=== PATIENT | male | born 1970 | race Hispanic/Latino ===

== ENCOUNTER 2019-05-30 23:33 | Observation (INO) | payer SELFPAY ==
[2019-05-31] MEDS ORDERED: Senokot S 8.6-50 MG TAB PO PRN (02:17)
[2019-05-31] MEDS ORDERED: Acetaminophen 325 MG TAB PO PRN ×2 (02:17→02:19)
[2019-05-31] MEDS ORDERED: Ondansetron PF 4 MG/2 ML Vial IVP PRN (02:19)
[2019-05-31] MEDS ORDERED: Ketorolac Tromethamine 30 MG/ML VIAL IVP PRN ×2 (02:21→12:19)
[2019-05-31] MEDS ORDERED: Morphine 2 MG/ML SYRINGE SLOW IVP PRN (02:21)
[2019-05-31] MEDS ORDERED: Morphine 4 MG/ML VIAL SLOW IVP PRN ×2 (02:21→03:05)
[2019-05-31] MEDS ORDERED: Dextrose 5% in Water 1,000 ML IV PRN ×2 (02:22→02:23)
[2019-05-31] MEDS ORDERED: Dextrose 50% Abboject 50 ML SYRINGE SLOW IVP PRN (02:22)
[2019-05-31] MEDS ORDERED: Ondansetron ODT 8 MG TAB PO PRN (02:22)
[2019-05-31] MEDS ORDERED: Insulin Regular 300 UNITS/3 ML VIAL SC PRN (02:23)
[2019-05-31] MEDS ORDERED: Dextrose 50% Abboject 50 ML SYRINGE IVP PRN (02:23)
[2019-05-31] MEDS ORDERED: 1/2 NS w/KCL 20 mEq 1,000 ML IV SCH (02:30)
[2019-05-31] MEDS: Sodium Chloride 0.9% 1,000 ML IV SCH ×3 (03:25→20:20)
--- NOTE | 2019-05-31 03:41 | HP ---
CHIEF COMPLAINT: Abdominal pain, nausea and vomiting. HISTORY OF PRESENT ILLNESS: The patient is a 48-year-old male with a history of diabetes, who presented to the [facility] with complaints of abdominal pain, nausea and vomiting x1 day. The patient is English-speaking and states that yesterday, he started having lower abdominal pain, cramping and also started having some nausea and vomiting throughout about 4 times. He denies any fevers or chills. He denies any recent sick contacts or any travel. The patient does drink significantly. He told me that he drinks about 3 to 5 beers a day and also did some cocaine about 2 days ago. He states that he is compliant with his medications. Denies any diarrhea or any hematemesis or hematochezia. PAST MEDICAL HISTORY: He has a history of diabetes. PAST SURGICAL HISTORY: Denies. MEDICATIONS: 1. He is currently on lisinopril 2.5 mg daily. 2. He is also on 70/30 20 in the morning and 15 units at night. 3. Glipizide 5 mg a.c. 4. Metformin 1000 mg b.i.d. ALLERGIES: NO KNOWN DRUG ALLERGIES. FAMILY HISTORY: No history of heart disease or strokes. SOCIAL HISTORY: He continues to drink. Also uses drugs. Denies any smoking history. He is a full code. REVIEW OF SYSTEMS: All negative, except for the ones mentioned above in the HPI. PHYSICAL EXAMINATION: VITAL SIGNS: As of the following; temperature 98.9, pulse 84, respiratory rate 16, oxygen saturation 100% on room air and blood pressure 118/84. GENERAL: He is awake, alert, and oriented x3. Does not appear in distress. CARDIOVASCULAR: S1, S2 present. No murmurs, rubs, or gallops. ABDOMEN: Soft. Bowel sounds are present x2. Mild pain upon palpation to bilateral lower abdominal area. EXTREMITIES: No edema. Pedal pulses are present x2. NEUROVASCULAR: No focal deficits noted. MUSCULOSKELETAL: The patient does have pain to his bilateral lower back area. LABORATORY RESULTS: As of the following; WBCs of 9.5, hemoglobin of 14.6, hematocrit of 42.0, and platelets of 248. Chemistry; sodium of 135, potassium of 3.7, BUN of 9, creatinine of 0.83, sugar of 233. His lipase was 280. Troponin x1 was negative. His LFTs were completely normal. ASSESSMENT AND PLAN: The patient is a very pleasant 48-year-old male, who presents to the hospital with complaints of nausea, vomiting, and abdominal pain. 1. Nausea, vomiting, and abdominal pain, possibly gastritis versus possible pancreatitis versus gastroparesis. As the patient's lipase is mildly elevated, I will check a CRP. He currently feels much better with some IV hydration. I have asked him to refrain from alcohol use. We will start him on some Pepcid twice a day. We will also get an abdominal x-ray since he is having lower abdominal pain. No epigastric pain and also lower back pain. We will also get a urine to make sure he does not have a urinary tract infection; however, he denies any dysuria. The patient is a recently diagnosed diabetic and his states that he has been taking his insulin regularly. 2. Diabetes. Sugars are around 233 on admission. We will continue to monitor and put him on his home medication. We will advance his diet as tolerated. 3. Deep venous thrombosis prophylaxis. We will put the patient on SCDs and subcu Lovenox. Job ID: [id number]
[2019-05-31 03:47] LABS: #Eosinphils 0.5 thou/uL (0.0-0.7); #Lymphocytes 2.3 thou/uL (1.20-3.40); #Monocytes 0.6 thou/uL (0.11-0.59); #Neutrophils 5.5 thou/uL (1.40-6.50); %Basophils 0.4 % (0.0-1.0); %Eosinophils 5.1 % (0.0-10.0); %Lymphocytes 26.1 % (21.0-51.0); %Monocytes 7.1 % (0.0-10.0); %Neutrophils 61.3 % (42.0-75.0); Hemoglobin 13.4 g/dL (14.0-18.0); Mean Corpuscular HGB CONC 36.8 g/dL (32.0-36.0); Mean Corpuscular Hemoglobin 32.6 pg (27.0-31.0); Mean Corpuscular Volume 88.7 fL (78.0-98.0); Platelet Count 205 thou/uL (130-400); RBC Distribution Width 11.2 % (11.5-14.5); White Blood Cell (WBC) Count 8.9 thou/uL (4.8-10.8)
[2019-05-31 03:53] LABS: Anion Gap 13 mmol/L (10-20); BUN (Urea Nitrogen) 9 mg/dL (8.9-20.6); Calc. Creatinine Clearance 0 mL/min (70-130); Carbon Dioxide 23 mmol/L (22-29); Chloride 104 mmol/L (98-107); Estimated GFR-MDRD Greater than 90; Glucose 217 mg/dL (70-105); Potassium 3.7 mmol/L (3.5-5.1); Sodium 136 mmol/L (136-145)
[2019-05-31 03:56] VITALS: BMI 25.4
[2019-05-31] MEDS: HumaLOG 300 UNITS/3 ML VIAL SC PRN ×4 (06:12→20:26)
[2019-05-31 06:24] LABS: Bilirubin Negative (Negative); Blood, Urine Negative (Negative); Clarity Clear (Clear); Glucose, Urine (Dipstick) Greater than 1000 mg/dL (Negative); Leukocyte Negative Leu/uL (Negative); Nitrite Negative (Negative); Protein, Urine (Dipstick) Negative (Neg-Trace); RBC/HPF 0-3 HPF (0-3); Squamous Epithelial None Seen HPF (0-3); Urobilinogen Normal mg/dL (Less than 2); WBC/HPF 0-3 HPF (0-3)
[2019-05-31 06:26] LABS: Bacteria/HPF None Seen HPF (None Seen)
[2019-05-31 06:29] LABS: Urine Culture Reflex No No
[2019-05-31] MEDS: Enoxaparin Sodium 40 MG/0.4 ML SYRINGE SC SCH (07:48)
[2019-05-31] MEDS: Famotidine/PF 20 mg/2ml Vial SLOW IVP SCH ×2 (07:50→20:21)
--- NOTE | 2019-05-31 09:27 | RAD ---
1 VIEW ABDOMEN: Date; 05/31/2019 HISTORY: Lower abdominal pain. FINDINGS: Small amount of retained fecal material is seen throughout the colon. Bowel gas pattern is overall no nspecific. Phleboliths overlie the pelvis. There are calcifications overlying the midline upper abdom en, as well as the left upper quadrant. These calcifications could be in the region of the pancreas a nd related to pancreatic calcification, but these calcifications are difficult to definitely localize on this exam. Minimal degenerative change seen in the spine. IMPRESSION: 1. Calcifications overlying the upper abdomen which may be in the region of the pancreas and possibl y sequelae of prior pancreatitis. However, these calcifications are difficult to localize on this exa m and could potentially be related to ingested material within bowel. 2. Nonspecific bowel gas pattern. POS: KRC
--- NOTE | 2019-05-31 12:44 | PDOC.HOSPP ---
- Subjective Encounter Date: 05/31/19 Encounter Time: 09:00 Subjective: mild pain, tolerating diet now. no imaging done, lipase 127. - Objective Vital Signs & Weight: Vital Signs (12 hours) Temp Pulse Resp BP BP Pulse Ox 05/31/19 11:32 98.5 F 55 L 18 144/93 H 100 05/31/19 08:00 98.7 F 65 18 138/90 98 05/31/19 07:38 98.7 F 65 18 138/90 98 05/31/19 04:15 98.8 F 59 L 16 127/88 99 05/31/19 02:35 99 F 60 16 135/83 98 Weight Weight 171 lb 15.369 oz I&O: 05/30/19 05/31/19 06/01/19 06:59 06:59 06:59 Intake Total 350 Balance 350 Result Diagrams: 05/31/19 03:25 05/31/19 03:25 Additional Labs: Accuchecks 05/31/19 05/31/19 11:27 06:05 POC Glucose 233 H 214 H Hospitalist ROS - Medication Medications: Active Medications Generic Name Dose Route Start Last Admin Trade Name Freq PRN Reason Stop Dose Admin Enoxaparin Sodium 40 mg 05/31/19 09:00 05/31/19 07:48 Lovenox SC 40 mg 0900 SUE Administration Famotidine 20 mg 05/31/19 09:00 05/31/19 07:50 Pepcid SLOW IVP 20 mg BID SUE Administration Sodium Chloride 1,000 mls @ 125 mls/hr 05/31/19 02:30 05/31/19 11:55 Normal Saline 0.9% IV 1,000 mls .Q8H SUE Administration Insulin Human Lispro 0 units 05/31/19 02:22 05/31/19 11:28 Humalog SC 3 unit .MILD SLIDING SCALE PRN Administration Mild Correctional Scale - Exam General Appearance: NAD Eye: PERRL ENT: normocephalic atraumatic Neck: supple Heart: RRR Respiratory: CTAB Gastrointestinal: soft, normal bowel sounds Hosp A/P - Plan prob alcoholic pancreatitis causing N/v/abd pain -cw aggressive hydration of 2 more liters -can cw diet, if he tolerates - need LFT and CT for complete workup--no LFTs done. - r/p pseudocyst, GB induced pancreatitis as well. alcohol abuse - counselling when appropriate.
[2019-05-31 13:25] LABS: ALT (SGPT) 9 U/L (8-55); AST (SGOT) 9 U/L (5-34); Albumin 3.7 g/dL (3.5-5.0); Alkaline Phosphatase 87 U/L (40-110); Bilirubin, Direct 0.3 mg/dL (0.1-0.3); Bilirubin, Total 0.7 mg/dL (0.2-1.2)
[2019-05-31] MEDS ORDERED: Iopamidol 370 76% 100 ML VIAL ONE (13:44)
--- NOTE | 2019-05-31 15:43 | CT ---
CT ABDOMEN WITH ORAL AND IV CONTRAST: 05/31/19 HISTORY: Alcoholic pancreatitis. Concern for a pseudocyst. COMPARISON: None. FINDINGS: There are minimal dependent changes in the lung bases. The liver, spleen, adrenal glands, and kidneys are normal. No calcified gallstones are seen. Numerous calcifications are seen toward the pancreas. There are peripancreatic inflammatory changes. No free air, free fluid, or lymphadenopathy seen in th e abdomen. No abnormally loculated fluid collection is noted. No portal splenic thrombosis is seen. T he small bowel loops are not abnormally dilated. The bony structures are unremarkable. IMPRESSION: Acute on chronic pancreatitis. No evidence of pseudocyst or portal splenic thrombosis. POS: MZA
[2019-05-31] MEDS ORDERED: FLU VACC QS2019-20(6MOS UP)/PF 60 MCG/0.5 ML SYRINGE IM ONE (21:00)
[2019-06-01] MEDS: Sodium Chloride 0.9% 1,000 ML IV SCH ×2 (04:22→12:09)
[2019-06-01] MEDS: HumaLOG 300 UNITS/3 ML VIAL SC PRN ×2 (05:41→12:12)
[2019-06-01] MEDS ORDERED: Lisinopril 2.5 MG TAB PO SCH (09:00)
[2019-06-01] MEDS: Enoxaparin Sodium 40 MG/0.4 ML SYRINGE SC SCH (10:24)
[2019-06-01] MEDS: Famotidine/PF 20 mg/2ml Vial SLOW IVP SCH (10:25)
[2019-06-01 12:38] VITALS: BP 129/87; TEMP 98.7
--- NOTE | 2019-06-01 16:37 | DIS ---
DATE OF ADMISSION: 05/31/2019 DATE OF DISCHARGE: 06/01/2019 DISCHARGE DIAGNOSES: 1. Abdominal pain, nausea, vomiting, and mild pancreatitis. 2. Diabetes. 3. Alcohol abuse. HOSPITAL COURSE: The patient is a very pleasant 48-year-old male with a history of type 2 diabetes, who presents to the hospital with complaints of abdominal pain, nausea, and vomiting x1 day. At this time, he was given IV hydration, had mild elevated lipase. His abdominal pain had resolved. He was put on clear liquids and his diet was advanced. However, a CT was ordered that indicated the patient to have acute on chronic pancreatitis. No evidence of pseudocyst or portal splenic thrombosis was noted. There were initial LFTs ordered for this patient, which were negative and they continued to be negative. The patient was educated in Greenlandic to stay away from alcohol use. He stated that he understood this. His home medications will be continued. His home medications will be as of the following, glipizide 5 mg before meals, lisinopril 2.5 daily, insulin 15 units at night and 20 units in the morning, and Glucophage 1000 mg twice a day. PHYSICAL EXAMINATION: VITAL SIGNS: Temperature 98.7, pulse rate 69, respirations are 16, oxygen saturation 100% on room air, and blood pressure 129/87. GENERAL: He is awake, alert, and oriented x3. Does not appear in distress CV: S1 and S2 present. No murmurs, rubs, or gallops. ABDOMEN: Soft and nontender. Bowel sounds are present x2. Again, I have asked him to refrain from alcohol use given his pancreatitis. He understands that he will follow up with his primary. Job ID: [id number]
[2019-06-01] MEDS ORDERED: metFORMIN 500 MG TAB PO SCH (17:00)
== END 2019-06-01 12:55 | disposition home or self-care (01) ==
LOC: ONC 05-31 01:44
PROVIDERS: ADMIT Internal Medicine; ATTEND Internal Medicine
DX: K85.20 Alcohol induced acute pancreatitis without necrosis or infection (principal); K86.0 Alcohol-induced chronic pancreatitis; F10.10 Alcohol abuse, uncomplicated; E11.9 Type 2 diabetes mellitus without complications; Z79.84 Long term (current) use of oral hypoglycemic drugs; Z79.899 Other long term (current) drug therapy
CPT/HCPCS: 36415; 36416; 74018; 74160; 80048; 80076; 81001; 83690; 85025; 86140; 90471; 90686; 96361; 96372; 96374; 96375; 96376; G0008; G0378; J1650; J1885; J2270; Q9967; S0028

== ENCOUNTER 2019-06-30 15:12 | Inpatient (IN) | payer SELFPAY ==
[~2019-06-30 15:12] MED LIST: Iopamidol-370 76% 500 ML 1 ML ONE
[2019-06-30] MEDS ORDERED: Acetaminophen 500 MG TAB ONE (16:48)
--- NOTE | 2019-06-30 16:53 | CT ---
EXAM: CT ABDOMEN AND PELVIS HISTORY: Abdominal pain. Past medical history of acute and chronic pancreatitis COMPARISON: 05/31/2019 Procedure: Multiple contiguous axial images were obtained and a CT of the abdomen and pelvis with IV contrast. C oronal reformats were performed. FINDINGS: Lower Chest: Scarring and atelectasis in the lung bases. Superimposed left lower lobe atelectasis or infiltrate cannot be excluded. Trace left pleural effusion Vessels: Normal caliber aorta Heart: Stable heart Abdomen: Portal vein:Portal vein is patent. The mid to distal splenic vein is somewhat atrophic and appears to be narrowed in its midportion. Previously, the splenic vein was patent in its entirety. Gallbladder: Contracted, due to nonfasting state Liver: within normal limits. Pancreas: Extensive calcifications replacing majority of the pancreatic parenchyma. There is peripanc reatic fat stranding and fluid involving the distal body and tail of the pancreas, compatible with pancreatitis. No evidence of pseudocyst. Spleen: within normal limits. Adrenals: within normal limits. Kidneys: Symmetric enhancement. No obstructive uropathy. Peritoneum: No free air or mass. There is fluid in the peripancreatic space, extending into the left paracolic gutter and inferior to the spleen. Bowel: Limited evaluation due to the absence of oral contrast. There are dilated loops of small bowel in the left hemiabdomen, likely representing a reactive ileus. Distal small bowel loops are decompressed. Ileocecal junction has a normal appearance. Normal caliber appendix. Scattered fecal ma terial in a nondistended, nondilated colon. Mesentery and Retroperitoneum: No enlarged mesenteric or retroperitoneal lymph nodes. Abdominal Wall: within normal limits. Pelvis: Reproductive Organs: Reproductive organs are unremarkable. Pelvis: No mass, lymphadenopathy, free air or free fluid. Bladder: within normal limits. Bones: within normal limits. IMPRESSION: 1. Small left-sided effusion. 2. Chronic changes in the lung bases. Superimposed atelectasis or infiltrate in the left lung base ca nnot be excluded 3. Chronic pancreatitis with superimposed acute pancreatitis involving the distal body and tail the p ancreas. Adjacent inflammatory changes with fluid and fat stranding. No pseudocyst 4. Narrowing and atretic appearance of the distal splenic vein.
--- NOTE | 2019-06-30 18:46 | HP ---
PRIMARY CARE PROVIDER: Grace Garner. CHIEF COMPLAINT: Abdominal pain. HISTORY OF PRESENT ILLNESS: This is a 48-year-old Venezuelan-speaking only male, who presents to [facility] in transfer from [facility], where the patient initially presented with increasing abdominal pain. The patient states 4-day history of increasing midepigastric abdominal pain, similar in presentation and intensity when he was admitted to [facility] in May 2019 for acute pancreatitis secondary to alcohol abuse. The patient denies any recent alcohol use and states his last intake was over 20 days prior to this evaluation. The patient admitted to associated nausea, vomiting, and diarrhea with the abdominal pain, but denies any travel history, change to his medication or diet. The patient denied any hematemesis or melena. The patient states he did not take any medication or any [id number] medication for relief of his symptoms. The patient states his symptoms were worse after eating a meal. In the emergency room, the patient underwent general evaluation with elevated lipase of 580. The patient was diagnosed with acute pancreatitis, and CT of the abdomen and pelvis was performed showing no obstructive process with changes consistent with chronic pancreatitis with potential superimposed acute pancreatitis. The patient received IV fluids in addition, morphine sulfate, and Phenergan. PAST MEDICAL HISTORY: 1. Smvhy-an-jwbzspp pancreatitis secondary to alcohol abuse. 2. Diabetes mellitus type 2, insulin requiring. 3. Dyslipidemia. 4. Hypertension. PAST SURGICAL HISTORY: Status post right inguinal hernia repair. CURRENT MEDICATIONS: 1. Glipizide XL 5 mg p.o. daily. 2. NPH insulin 20 units subcutaneously q.a.m. and 15 units subcutaneously at bedtime. 3. Lisinopril 2.5 mg p.o. daily. 4. Metformin 1000 mg p.o. b.i.d. ALLERGIES: NO KNOWN DRUG ALLERGIES. FAMILY HISTORY: No inheritable diseases per the patient report. SOCIAL HISTORY: Formerly heavy alcohol use up to 20 days prior to this evaluation. No tobacco or illicit drug use. Resides in the [place], [place] area. REVIEW OF SYSTEMS: CONSTITUTIONAL: Negative for weight loss or gain, ability to conduct usual activities. SKIN: Negative for rash, itching. EYES: Negative for double vision, pain. ENT/MOUTH: Negative for nose bleeding, neck stiffness, pain, tenderness. CARDIOVASCULAR: Negative for palpitations, dyspnea on exertion, orthopnea. RESPIRATORY: Negative for shortness of breath, wheezing, cough, hemoptysis, fever or night sweats. GASTROINTESTINAL: Negative for poor appetite, abdominal pain, heartburn, nausea, vomiting, constipation, or diarrhea. GENITOURINARY: Negative for urgency, frequency, dysuria, nocturia. MUSCULOSKELETAL: Negative for pain, swelling. NEUROLOGIC/PSYCHIATRIC: Negative for anxiety, depression. ALLERGY/IMMUNOLOGIC: Negative for skin rash, bleeding tendency. Otherwise, negative except as stated per HPI. PHYSICAL EXAMINATION: VITAL SIGNS: On admission; blood pressure 122/79, pulse 92, respiratory rate 18, temperature 100.3 degrees Fahrenheit, O2 saturation 99% on room air. GENERAL APPEARANCE: This is a 48-year-old male, alert and oriented x3, pleasant, responsive, in no acute distress. HEENT: Pupils are equal, round, reactive to light and accommodation. Extraocular muscles are intact. No scleral icterus. No conjunctival injection. Nares are patent. OP is clear. Oral mucosa is dry. NECK: Supple. No cervical adenopathy. No thyromegaly. No carotid bruits. No JVD appreciated. Cervical spine with full active and passive range of motion. No meningeal signs noted. CHEST: Lungs are clear to auscultation bilaterally. CARDIOVASCULAR: S1, S2 without noted murmur, rub, or gallop. ABDOMEN: Tenderness to palpation in the mid epigastric region with mild guarding. No palpable mass. Bowel sounds are diminished, but positive in all 4 quadrants. EXTREMITIES: Warm and dry with fair turgor. No clubbing, cyanosis, or asymmetric edema appreciated. Pulses palpable distally at the dorsalis pedis, posterior tibial, and popliteal arteries bilaterally. Capillary refill less than 2 seconds. NEUROLOGIC: Cranial nerves 2 through 12 are grossly intact. No focal or lateralizing signs appreciated. PERTINENT LABORATORY AND X-RAY FINDINGS: Sodium 138, potassium 3.8, chloride 100, CO2 of 28, BUN 12, creatinine 1.01, estimated GFR of 80, glucose 298. Last hemoglobin A1c of 17.9 on 08/20/2018. Calcium 8.7. LFTs within normal limits. Lipase 580, previously noted 120 on 05/31/2019. CBC showed a white blood cell count 8.9, hemoglobin 13, hematocrit 39, and platelet count 226 with 73% neutrophils. Urinalysis positive for glucose. CT of the abdomen and pelvis dated on 06/30/2019 showed evzft-cm-nvbywaj pancreatitis. Small left-sided pleural effusion. ASSESSMENT AND PLAN: 1. Ytzxr-hg-ryygonm pancreatitis. The patient will be admitted to the medical floor, suspect related to alcohol in conjunction with diabetes mellitus and hyperglycemia. We will continue intravenous normal saline at 100 mL/hr. Morphine sulfate 4 mg IV q.4 hours p.r.n. N.p.o. except medications and sips of water. Serial abdominal exams. Repeat lipase in the a.m. 2. Diabetes mellitus type 2, insulin requiring, uncontrolled currently. We will continue serial glucose monitoring. Confirm home insulin regimen. Insulin sliding scale for reflexive coverage. ADA diet when tolerating p.o. intake. Recheck A1c level in the a.m. Accu-Cheks q.6 hours. 3. Hypertension. Continue blood pressure monitoring, p.r.n. hydralazine. Confirm home blood pressure regimen. 4. Alcohol abuse. The patient denies recent use in the last 20 days. We will continue to monitor clinical response. Alcohol cessation resources. 5. Prophylaxis. SCDs while in bed. Pepcid 20 mg IV b.i.d. 6. Code status is full. Surrogate medical decision maker is the patient's spouse. Job ID: [id number]
[2019-06-30] MEDS ORDERED: HumaLOG 300 UNITS/3 ML VIAL SC PRN (19:46)
[2019-06-30] MEDS ORDERED: Morphine 4 MG/ML VIAL SLOW IVP PRN (19:46)
[2019-06-30] MEDS ORDERED: Ondansetron ODT 4 MG TAB PO PRN (19:46)
[2019-06-30] MEDS ORDERED: Acetaminophen 500 MG TAB PO PRN (19:46)
[2019-06-30] MEDS ORDERED: Ondansetron PF 4 MG/2 ML Vial IVP PRN (19:46)
[2019-06-30] MEDS ORDERED: Dextrose 50% Abboject 50 ML SYRINGE SLOW IVP PRN (19:46)
[2019-06-30] MEDS ORDERED: hydrALAZINE 20 MG/ML VIAL SLOW IVP PRN (19:46)
[2019-06-30] MEDS ORDERED: Dextrose 5% in Water 1,000 ML IV PRN (19:46)
[2019-06-30 21:35] VITALS: BMI 24.7
[2019-06-30] MEDS: Famotidine/PF 20 mg/2ml Vial SLOW IVP SCH (22:35)
[2019-06-30] MEDS: Sodium Chloride 0.9% 1,000 ML IV SCH (22:35)
[2019-07-01 05:54] LABS: Hemoglobin A1c 8.4 % (4.0-6.0)
[2019-07-01 05:55] LABS: Hemoglobin 12.1 g/dL (14.0-18.0); Mean Corpuscular HGB CONC 33.6 g/dL (32.0-36.0); Mean Corpuscular Hemoglobin 30.9 pg (27.0-31.0); Mean Corpuscular Volume 92.1 fL (78.0-98.0); Mean Platelet Volume 8.5 fL (7.4-10.4); Platelet Count 199 thou/uL (130-400); RBC Distribution Width 10.8 % (11.5-14.5); Red Blood Cell (RBC) Count 3.92 mill/uL (4.70-6.10); White Blood Cell (WBC) Count 6.3 thou/uL (4.8-10.8)
[2019-07-01 06:06] LABS: Band 1 % (5-11); Eosinophils 6 % (0-10); Lymphocytes 24 % (21-51); MDiff Complete? YES; Monocytes 10 % (0-10); Neutrophil 59 % (42-75)
[2019-07-01 06:13] LABS: ALT (SGPT) 8 U/L (8-55); AST (SGOT) 11 U/L (5-34); Albumin 3.4 g/dL (3.5-5.0); Alkaline Phosphatase 70 U/L (40-110); Anion Gap 10 mmol/L (10-20); BUN (Urea Nitrogen) 10 mg/dL (8.9-20.6); Bilirubin, Total 0.8 mg/dL (0.2-1.2); Calc. Creatinine Clearance 120 mL/min (70-130); Calcium 8.5 mg/dL (7.8-10.44); Carbon Dioxide 25 mmol/L (22-29); Cardiac Risk 4.1 (Less than 4.5); Chloride 107 mmol/L (98-107); Cholesterol 124 mg/dl (< 200 Desired); Estimated GFR-MDRD Greater than 90; Globulin 2.9 g/dL (2.4-3.5); Glucose 158 mg/dL (70-105); HDL Cholesterol 30 mg/dL (>60 Neg Risk); LDL Cholesterol, Calculated 81 mg/dL; Potassium 3.6 mmol/L (3.5-5.1); Protein, Total 6.3 g/dL (6.0-8.3); Sodium 138 mmol/L (136-145); Triglycerides 65 mg/dL (Less than 150)
[2019-07-01] MEDS: Sodium Chloride 0.9% 1,000 ML IV SCH ×3 (08:32→21:15)
[2019-07-01] MEDS: Famotidine/PF 20 mg/2ml Vial SLOW IVP SCH ×2 (08:32→19:52)
--- NOTE | 2019-07-01 12:35 | PDOC.HOSPP ---
- Subjective Encounter Date: 07/01/19 Encounter Time: 12:15 Subjective: f/u for acute pancreatitis on IVF's, Morphine sulfate IV. Feels better overall. No abd pain. - Objective Vital Signs & Weight: Vital Signs (12 hours) Temp Pulse Resp BP Pulse Ox 07/01/19 11:26 98.9 F 79 16 109/66 98 07/01/19 07:57 99.1 F 83 16 91/50 L 97 07/01/19 04:20 98.5 F 84 12 100/56 L 98 Weight Weight 166 lb 11.2 oz I&O: 06/30/19 07/01/19 07/02/19 06:59 06:59 06:59 Intake Total 950 Balance 950 Result Diagrams: 07/01/19 05:32 07/01/19 05:32 Additional Labs: Accuchecks 07/01/19 07/01/19 07/01/19 11:34 05:55 00:38 POC Glucose 137 H 153 H 101 Laboratory Tests 08/20/18 07/01/19 07/01/19 05:32 05:32 05:32 Hemoglobin A1c 17.9 H 8.4 H Triglycerides 65 Hospitalist ROS - Medication Medications: Active Medications Generic Name Dose Route Start Last Admin Trade Name Freq PRN Reason Stop Dose Admin Famotidine 20 mg 06/30/19 21:00 07/01/19 08:32 Pepcid SLOW IVP 20 mg Q12HR SUE Administration - Exam General Appearance: NAD, awake alert Eye: PERRL, anicteric sclera ENT: normocephalic atraumatic, no oropharyngeal lesions Neck: supple, symmetric, no JVD, no thyromegaly, no lymphadenopathy Heart: RRR, no murmur, no gallops, no rubs, normal peripheral pulses Heart - other findings: S1, S2 Respiratory: CTAB, no wheezes, no rales, no ronchi, normal chest expansion Gastrointestinal: soft, non-tender, non-distended, normal bowel sounds, no palpable masses Extremities: no cyanosis, no clubbing, no edema Skin: normal turgor, no lesions Neurological: cranial nerve grossly intact, no new deficit Musculoskeletal: normal tone, normal strength, no muscle wasting Psychiatric: normal affect, A&O x 3 Hosp A/P (1) Acute pancreatitis Code(s): K85.90 - ACUTE PANCREATITIS WITHOUT NECROSIS OR INFECTION, UNSP Status: Acute Plan: Acute on chronic pancreatitis improving, start clear liquids, decrease IVF's, repeat Lipase in am (2) DM hyperosmolarity type II Code(s): E11.00 - TYPE 2 DIAB W HYPROSM W/O NONKET HYPRGLY-HYPROS COMA ([facility]) Status: Chronic Plan: Improved A1C, ISS, serial accuchecks, resume home Insulin when taking regular po intake (3) HTN (hypertension) Code(s): I10 - ESSENTIAL (PRIMARY) HYPERTENSION Status: Chronic Qualifiers: Hypertension type: essential hypertension Qualified Code(s): I10 - Essential (primary) hypertension Plan: Relative hypotension, hold BP meds (4) Alcohol abuse Code(s): F10.10 - ALCOHOL ABUSE, UNCOMPLICATED Status: Chronic Plan: ETOH cessation resources - Plan out of bed/ambulate, DVT proph w/SCDs Stable currently Decrease IVF's 75ml/h Start clear liquids OOB/ambulate AM lab: Lipase Likely home in am
[2019-07-01] MEDS: HumaLOG 300 UNITS/3 ML VIAL SC PRN (16:24)
[2019-07-02] MEDS: Famotidine/PF 20 mg/2ml Vial SLOW IVP SCH (08:41)
[2019-07-02] MEDS: Sodium Chloride 0.9% 1,000 ML IV SCH (08:42)
[2019-07-02] MEDS: HumaLOG 300 UNITS/3 ML VIAL SC PRN (11:39)
--- NOTE | 2019-07-02 12:03 | DIS ---
DATE OF ADMISSION: 06/30/2019 DATE OF DISCHARGE: 07/02/2019 DISCHARGE DIAGNOSES: 1. Acute on chronic pancreatitis, improved. 2. Diabetes mellitus type 2, labile. 3. Hypertension, stable. 4. History of alcohol use. CONSULTATIONS: None. PERTINENT LABORATORY AND X-RAY FINDINGS: Hemoglobin A1c 8.4. LFTs within normal limits. Lipase ranged between 214 and 580. Triglyceride 65. CBC showed a hemoglobin of 12, hematocrit of 36, platelet count of 199. CT of the abdomen and pelvis dated 06/30/2019, showed chronic pancreatitis with superimposed acute pancreatitis of the distal body and tail. Multiple calcifications in the pancreatic parenchyma noted. HOSPITAL COURSE: The patient was admitted to the medical floor after initially presenting with increasing midepigastric abdominal pain with elevated lipase of 580. The patient with history of alcohol abuse, none currently presenting with an acute on chronic exacerbation of pancreatitis. The patient was placed on IV fluids and given IV morphine sulfate in addition to antiemetics and kept n.p.o. The patient clinically improved with supportive and conservative management with decreasing lipase as stated previously. The patient was advanced to clear liquids tolerating without difficulty. Overall, the patient did remain clinically stable with supportive management. I have examined the patient at the time of discharge and discussed followup instructions. The patient verbalized understanding and agreement ready for discharge, 07/02/2019. DISCHARGE MEDICATIONS: 1. Glipizide XL 5 mg p.o. daily. 2. NPH insulin 20 units subcutaneously q.a.m. and 15 units subcutaneously at bedtime. 3. Lisinopril 2.5 mg p.o. daily. 4. Metformin 1000 mg p.o. b.i.d. 5. Tramadol 50 mg p.o. q.i.d. p.r.n. pain, #30 given. FOLLOWUP: The patient may follow up with [facility] in [place], [place] within 7 days of discharge. CONDITION ON DISCHARGE: Stable. ACTIVITY: Ad-jagjit. DIET: ADA with bland diet over the next 48 to 72 hours without fatty foods, limiting dairy intake and no alcohol. CODE STATUS: Full. DISPOSITION: Home, 07/02/2019. TIME SPENT: Total time preparing and coordinating discharge is 32 minutes. Job ID: [id number]
[2019-07-02 13:19] VITALS: BP 121/80; TEMP 98.4
--- NOTE | 2019-07-03 06:06 | PQF ---
[employer] Winform ViewerBETANZO SHELL HERNÁNDEZ CHARLES DO [id number] CLINICAL DOCUMENTATION CLARIFICATION FORM: POST DISCHARGE Addendum to original discharge summary date: ____ Late entry note date: __ DATE:07/03/19 ATTN:Semaj Ricardo Please exercise your independent, professional judgment in responding to the clarification form. Clinical indicators are provided on the bottom of this form for your review Please check appropriate box(s): Conflicting documentation was noted in the Medical Record, please clarify if patient is being treated/monitored for: [ x ] Uncontrolled type 2 DM [ ] DM hyperosmolarity type 2 [ ] Other diagnosis please specify [ ] Unable to determine In addition, please specify: Present on Admission (POA): [ x ] Yes [ ] No [ ] Unable to determine For continuity of documentation, please document condition throughout progress notes and discharge summary. Thank You. CLINICAL INDICATORS - SIGNS / SYMPTOMS/ LABS H and P pg.3- Diabetes mellitus type 2, insulin requiring, uncontrolled currently Hospitalist PN pg.3- DM hyperosmolarity type 2 Laboratory- POC Glucose 141H, 101, 153H, 137H, 227H, 193H, 202H, 202H H and P pg.1- Patient admitted associated nausea, vomiting and diarrhea RISK FACTORS Acute on chronic pancreatitis- H and P pg.1 Alcohol abuse- H and P pg.1 dyslipidemia- H and P pg.1 HTN- H and P pg.1 TREATMENT Insulin sliding scale- H and P pg.3 Serial glucose Monitoring- H and P pg.3 Acu-Checks q6 hours- H and P pg.3 Glipizide 50mg PO- MAR Metformin 500mg PO- MAR IV Fluids- MAR (This form is maintained as a part of the permanent medical record) 2014 [employer]. All Rights Reserved Robbie ARJUN
== END 2019-07-02 13:50 | disposition home or self-care (01) | DRG 440 ==
LOC: ERS 15:12 → ONC 20:56
PROVIDERS: ADMIT Family Medicine; ATTEND Family Medicine
DX: K85.20 Alcohol induced acute pancreatitis without necrosis or infection (principal); K86.0 Alcohol-induced chronic pancreatitis; E11.65 Type 2 diabetes mellitus with hyperglycemia; I10 Essential (primary) hypertension; F10.10 Alcohol abuse, uncomplicated; E78.5 Hyperlipidemia, unspecified; Z79.4 Long term (current) use of insulin; Z79.899 Other long term (current) drug therapy
CPT/HCPCS: 36415; 36416; 74177; 80053; 80061; 83036; 83690; 85007; 85027; 96360; J2270; Q9967; S0028